=== PATIENT | female | born 2000 | race Two or more races ===

== ENCOUNTER 2025-05-19 11:26 | Emergency (ER) | payer MEDICAID, SELFPAY ==
[2025-05-19 11:36] VITALS: BP 119/66; PULSE 72; RESP 18; TEMP 36.8; O2SAT 100; BMI 15.6
--- NOTE | 2025-05-19 11:57 | XR_ITS ---
Examination: PA lateral chest 2 views TECHNIQUE: Upright PA lateral chest 2 views Date and time: 05/19/2025, 12:46 PM INDICATIONS: Chest pain numbness left arm beginning 3 weeks ago. FINDINGS: Normal heart size. Lungs are clear. The osseous structures are intact IMPRESSION: No active disease
--- NOTE | 2025-05-19 11:57 | EKG_ITS ---
[facility] Test Date: 2025-05-19 Pat Name: AFUA OZUNA Department: Room: - Gender: Female Seismic Interpreter: : 2000 Requested By: Malik Monteiro Order Number: [id number] Reading MD: Malik Monteiro Measurements Intervals [place] Rate: 74 P: 70 IA: 120 QRS: 65 QRSD: 70 T: 36 QT: 355 QTc: 396 Interpretive Statements SINUS RHYTHM WITH SINUS ARRHYTHMIA No previous ECG available for comparison /store/S0/[id number]/ecg/[id number].pdf
--- NOTE | 2025-05-19 11:58 | PD.EDSOB ---
ED SOB =RME/HPI General Chief Complaint: Shortness of Breath/Dyspnea Stated Complaint: SOB, chest pain radiating to left arm Time Seen by Provider: 05/19/25 11:42 Arrival date/time: 05/19/25 11:26 Limitations: no limitations RME / HPI RME / HPI Narrative: 24-year-old female presents for evaluation of chest pain x 3 weeks. She describes it as sharp, intermittent, substernal pain that radiates down her left arm. She endorses dyspnea and intermittent chills. Denies cough, hemoptysis, abdominal pain, nausea, vomiting, visual changes. Patient was sent to the ED from her primary care doctor for cardiac workup. Patient's family denies history of sudden cardiac . MD Complaint: shortness of breath and chest pain Consistency/Duration: intermittent Related Data Allergies Allergy/AdvReac Type Severity Reaction Status Date / Time No Known Drug Allergies Allergy Verified 05/19/25 11:32 Review of Systems Review of Systems Narrative Review of Systems: Per patient and patient's father. Constitutional Constitutional: Denies body ache(s), Denies chills, Reports fatigue, Denies fever(s), Denies headache(s) and Reports poor appetite Eyes Eyes: Denies blurry vision and Denies change in vision ENT Ears, Nose, Mouth, and Throat: Denies headache(s) and Denies neck pain Cardiovascular Cardiovascular: Reports chest pain, Denies diaphoresis, Reports dyspnea, Denies leg edema and Denies palpitations Respiratory Respiratory: Denies cough, Reports dyspnea, Denies hemoptysis and Denies wheezing Gastrointestinal Gastrointestinal: Denies abdominal pain, Denies diarrhea and Denies vomiting Genitourinary Genitourinary: Denies dysuria and Denies flank pain Musculoskeletal Musculoskeletal: Denies back pain, Denies neck pain, Denies stiffness and Denies tingling Integumentary/Breasts Skin/Breast: Denies new lesions and Denies rash Neurologic Neurologic: Denies headache(s) and Denies tingling Endocrine Endocrine: Reports fatigue and Denies palpitations Allergic/Immunologic Allergic/Immunologic: Denies wheezing Past Medical History Social History SMOKING STATUS: Never smoker ED Exam General Limitations: Present no limitations General appearance: Present alert and in no apparent distress Head Head exam: Present atraumatic and normocephalic Eye Eye exam: Present normal appearance, PERRL and EOMI; Absent scleral icterus ENT ENT exam: Present normal oropharynx and mucous membranes moist Neck Neck exam: Present normal inspection and full ROM; Absent meningismus Chest Chest inspection: Present normal inspection and symmetric chest wall rise Respiratory Respiratory exam: Present normal lung sounds bilaterally; Absent respiratory distress or wheezes Cardiovascular Cardiovascular exam: Present regular rate and +S1 Abdominal Exam Abdominal exam: Present soft; Absent distention Extremities Exam Extremities exam: Present normal inspection and full ROM Back Exam Back exam: Present normal inspection and full ROM; Absent CVA tenderness (R) or CVA tenderness (L) Neurological Exam Neurological exam: Present alert and normal gait Psychiatric Psychiatric exam: Present normal affect Skin Skin exam: Present warm, dry and intact Course Quality Measures none Orders Category Date Time Status EKG (ED ONLY) *Do not use* NOW Care 05/19/25 11:57 Completed EKG (ED Only) Stat Exams 05/19/25 11:57 Draft XR chest 2V Stat Exams 05/19/25 11:57 Completed B-Type Natriuretic Peptide Stat Lab 05/19/25 12:28 Completed CBC Stat Lab 05/19/25 12:28 Completed Comprehensive Metabolic Panel Stat Lab 05/19/25 12:28 Completed Drug Screen,Urine Stat Lab 05/19/25 13:06 Completed HCG Qualitative,Urine Stat Lab 05/19/25 13:06 Completed LDH (Lactate Dehydrogenase) Stat Lab 05/19/25 12:28 Completed Magnesium Stat Lab 05/19/25 12:28 Completed Partial Thromboplastin Time Stat Lab 05/19/25 12:28 Completed Prothrombin Time with INR Stat Lab 05/19/25 12:28 Completed Troponin I Stat Lab 05/19/25 12:28 Completed Urinalysis Stat Lab 05/19/25 13:06 Completed Vital Signs Vital signs: Vital Signs Temperature 98.3 F 05/19/25 11:36 Pulse Rate 72 05/19/25 11:36 Respiratory Rate 18 05/19/25 11:36 Blood Pressure 119/66 05/19/25 11:36 Pulse Oximetry (%) 100 05/19/25 11:36 Oxygen Delivery Method Room Air 05/19/25 11:36 Pulse ox 100% on room air, within normal limits. Shortness of Breath / Dyspnea MDM Narrative MDM Narrative:: 24-year-old female brought in by dad for evaluation of intermittent chest pain. Vital signs reassuring. Cardiac workup today was unremarkable with fortunately negative troponin pointing way from ACS. No evidence of pneumonia or acute cardiopulmonary process on chest x-ray. Viral swabs today were negative. Patient is anemic but not requiring emergent transfusion at this time. Nonspecific chest pain warrants further outpatient workup. Ultimately patient was discharged home with plan to follow-up with primary care within the week. I advised her to consider outpatient cardiology referral. Strict return precautions were provided. Patient stable at discharge. Patient data External records reviewed:: [facility] previous records Clinical information provided by:: patient Social determinants that could affect healthcare access:: none Patient has the following chronic illnesses:: None reported. How is presenting disease/condition affected by chronic disease/condition?: no chronic disease Evaluation data The following diagnostics were reviewed and interpreted by me:: lab results, radiology exam(s) and EKG tracing(s) Lab and/or radiology exams considered but not ordered:: Workup ordered. Interpretation Summary: EKG with rate 74, sinus rhythm, normal [place] interval, nonspecific ST changes. CBC showed anemia not requiring emergent transfusion at this time. No leukocytosis. No gross electrolyte abnormality or evidence of endorgan damage. UA with no sign of infection. hCG negative. Chest x-ray with no consolidation, no infiltrates, trachea midline. Medications / Prescriptions Medications or Prescriptions considered but not ordered:: Considered not ordered. Medication administrations:: Considered not ordered. Consultations Consultation(s) initiated? (list below): No Diagnosis Shortness of Breath Differential Diagnosis: congestive heart failure, community acquired pneumonia, asthma with exacerbation, pulmonary embolism and other (ACS, chest wall discomfort.) Most likely diagnosis given after review of the tests above:: Chest pain. Admission Indicated Admission indicated?: not indicated Admission Request Was there a request for admission?: No Disposition Plan Disposition Plan: Discharge Discharge Attestation Discharge Attestation: The patient and all family members were given an opportunity to ask questions and understood the discharge instructions. Discharge instructions specifically effects, indications for sooner follow up or return to the emergency department, and the expected course of current diagnosis. Patient condition: Stable Discharge Plan Plan Patient Disposition: HOME (Self Care) Discharge Disposition comment: stable Prescriptions/Referrals Referrals: No Primary/Family,Physician [Primary Care Provider] - In 1 week Problem List Clinical Impression: Anemia, Chest pain Impression comment: Follow-up with primary care within the next week for reevaluation. Consider outpatient cardiology referral. Consider outpatient nutrition consultation. Return to the ED if your symptoms worsen or change. Patient/Caregiver Discharge Instructions Education Materials: Anemia, ED Chest Pain, Uncertain Cause Print Language: Greenlandic Stand Alone Forms: Tahira Award Info., Patient Portal Info Letter PA/RESEARCH ENGINEER Supervising Physician PA/RESEARCH ENGINEER Supervising Physician: Dr. Gagnon
[2025-05-19 12:49] LABS: Basophils # (Auto) 0.1 Thou/mm3 (0.0-0.2); Basophils % (Auto) 1 % (0-2.5); Eosinophils # (Auto) 0.1 Thou/mm3 (0.0-0.5); Eosinophils % (Auto) 1 % (0-10); Hematocrit 34.1 % (36.0-46.0); Immature Granulocytes % (Auto) 0 % (0-0); Immature Granulocytes Auto 0.01 Thou/mm3 (0.00-0.00); Lymphocytes # (Auto) 1.7 Thou/mm3 (1.0-4.8); Lymphocytes % (Auto) 36 % (10-50); Mean Corpuscular HGB Conc 32.3 g/dl (31.0-37.0); Mean Corpuscular Hemoglobin 24.8 pg (25.0-35.0); Mean Corpuscular Volume 77 fL (80-100); Monocytes # (Auto) 0.4 Thou/mm3 (0.0-0.8); Monocytes % (Auto) 8 % (0-12); Neutrophils # (Auto) 2.7 Thou/mm3 (1.8-7.7); Neutrophils % (Auto) 55 % (37-80); Nucleated Red Blood Cell % 0 /100 WBC (0); Platelet Count 320 Thou/mm3 (140-440); RDW Standard Deviation 42.3 fL (36.4-46.3); Red Blood Count 4.44 Miln/mm3 (4.00-5.20); White Blood Count 4.9 Thou/mm3 (3.6-11.0)
[2025-05-19 13:05] LABS: INR 1.1 (0.9-1.3); Partial Thromboplastin Time 26.5 Seconds (22.0-36.0); Prothrombin Time 11.7 Seconds (9.0-12.2)
[2025-05-19 13:13] LABS: B-Type Natriuretic Peptide 30 pg/mL (0-100)
[2025-05-19 13:15] LABS: Collection Type, Urine Clean Catch
[2025-05-19 13:19] LABS: HCG Qualitative,Urine Negative
[2025-05-19 13:21] LABS: Bilirubin,Urine Negative (Negative); Blood,Urine Negative (Negative); Clarity,Urine Clear (Clear/Hazy); Color,Urine Lt-Yellow (Lt Yel-Yel); Glucose, Urine Negative (Negative); Ketones,Urine Negative (Negative); Leukocyte Esterase,Urine Negative (Negative); Nitrite,Urine Negative (Negative); Protein,Urine Negative (Neg - Trace); RBC,Urine 3 /hpf (0-3); Squamous Epithelial Cell,Urine 3 /hpf (0-5); Urobilinogen,Urine Negative mg/dL (0.0-1.0); WBC,Urine < 1 /hpf (0-5)
[2025-05-19 13:26] LABS: Alanine Aminotransferase 9 U/L (10-49); Albumin, Serum 4.7 gm/dL (3.5-5.0); Albumin/Globulin Ratio 2.1 (1.2-2.2); Alkaline Phosphatase 63 U/L (46-116); Anion Gap 8 (7-16); Aspartate Amino Transferase 19 U/L (0-34); BUN/Creatinine Ratio 17 Ratio (12-20); Bilirubin,Total 0.6 mg/dL (0.3-1.2); Blood Urea Nitrogen 10 mg/dL (9-23); Calcium 9.6 mg/dL (8.3-10.6); Calcium (Corrected) 9.6 mg/dL (8.5-10.1); Carbon Dioxide 26.2 mMol/L (20.0-31.0); Chloride 106 mMol/L (98-107); Creatinine (Component) 0.6 mg/dL (0.6-1.3); Estimated Creatinine Clearance 92.8 mL/min (>60); Globulin 2.2 gm/dL (2.3-3.5); Glucose 89 mg/dL (74-106); LDH (Lactate Dehydrogenase) 164 U/L (120-246); Osmolality,Calculated 277 (275-295); Potassium 4.1 mMol/L (3.4-5.1); Sodium 140 mMol/L (136-145); Total Protein 6.9 gm/dL (5.7-8.2); Troponin I < 0.002 ng/mL (0.0-0.045); eGFR > 60 See Note
[2025-05-19 13:36] LABS: Amphetamine/Methamp Scrn,U Negative (Negative); Barbiturate Screen,Urine Negative (Negative); Benzodiazepines Screen,Urine Negative (Negative); Benzoylecgonine Screen, Ur Negative (Negative); Fentanyl Screen,Urine Negative (Negative); Opiate Screen,Urine Negative (Negative); THC Screen,Urine Negative (Negative)
[2025-05-19 15:15] VITALS: BP 112/74; PULSE 60; RESP 18; TEMP 36.7; O2SAT 100
== END 2025-05-19 15:39 | disposition home or self-care (01) ==
PROVIDERS: Physician Assistant; Emergency Provider Emergency Medicine
DX: D64.9 Anemia, unspecified (principal); R07.2 Precordial pain
CPT/HCPCS: 36415; 71046; 80053; 80307; 81001; 81025; 83615; 83735; 83880; 84484; 85025; 85610; 85730; 93005; 99283

== ENCOUNTER 2025-09-19 23:41 | Emergency (ER) | payer SELFPAY ==
[2025-09-19 23:53] VITALS: BP 111/49; PULSE 70; RESP 20; TEMP 36.8; O2SAT 100
[2025-09-20 00:29] VITALS: BMI 17.5
[2025-09-20 00:43] LABS: HCG,Qualitative Serum Negative
[2025-09-20 00:44] LABS: Basophils # (Auto) 0.1 Thou/mm3 (0.0-0.2); Basophils % (Auto) 1 % (0-2.5); Eosinophils # (Auto) 0.2 Thou/mm3 (0.0-0.5); Eosinophils % (Auto) 2 % (0-10); Hematocrit 32.8 % (36.0-46.0); Hemoglobin 10.4 g/dL (12.0-16.0); Immature Granulocytes Auto 0.02 Thou/mm3 (0.00-0.00); Lymphocytes # (Auto) 3.0 Thou/mm3 (1.0-4.8); Lymphocytes % (Auto) 34 % (10-50); Mean Corpuscular HGB Conc 31.7 g/dl (31.0-37.0); Mean Corpuscular Hemoglobin 24.4 pg (25.0-35.0); Mean Corpuscular Volume 77 fL (80-100); Monocytes # (Auto) 0.7 Thou/mm3 (0.0-0.8); Monocytes % (Auto) 8 % (0-12); Neutrophils # (Auto) 4.9 Thou/mm3 (1.8-7.7); Neutrophils % (Auto) 56 % (37-80); Nucleated Red Blood Cell # 0.00 Thou/mm3 (0.00-0.00); Nucleated Red Blood Cell % 0 /100 WBC (0); Platelet Count 381 Thou/mm3 (140-440); RDW Standard Deviation 37.7 fL (36.4-46.3); Red Blood Count 4.26 Miln/mm3 (4.00-5.20); White Blood Count 8.8 Thou/mm3 (3.6-11.0)
[2025-09-20 00:50] LABS: Alanine Aminotransferase 9 U/L (10-49); Albumin, Serum 4.7 gm/dL (3.5-5.0); Albumin/Globulin Ratio 2.5 (1.2-2.2); Alkaline Phosphatase 65 U/L (46-116); Anion Gap 13 (7-16); Aspartate Amino Transferase 19 U/L (0-34); BUN/Creatinine Ratio 23 Ratio (12-20); Bilirubin,Total 0.4 mg/dL (0.3-1.2); Blood Urea Nitrogen 16 mg/dL (9-23); Calcium 9.4 mg/dL (8.3-10.6); Calcium (Corrected) 9.4 mg/dL (8.5-10.1); Carbon Dioxide 23.6 mMol/L (20.0-31.0); Chloride 107 mMol/L (98-107); Creatinine (Component) 0.7 mg/dL (0.6-1.3); Estimated Creatinine Clearance 86.5 mL/min (>60); Globulin 1.9 gm/dL (2.3-3.5); Glucose 97 mg/dL (74-106); Lipase 34 U/L (12-53); Osmolality,Calculated 288 (275-295); Potassium 3.3 mMol/L (3.4-5.1); Sodium 144 mMol/L (136-145); Total Protein 6.6 gm/dL (5.7-8.2); eGFR > 60 See Note
[2025-09-20 00:57] LABS: Collection Type, Urine Clean Catch
--- NOTE | 2025-09-20 01:02 | PD.EDABDPN ---
ED Abdominal Pain RME/HPI General Chief Complaint: Abdominal Pain Stated complaint: ABD PAIN Time seen by provider: 09/20/25 00:04 Arrival date/time: 09/19/25 23:41 RME / HPI RME / HPI narrative: DR. QUICK MAIN ED EVALUATION: Patient presenting with diffuse upper abdominal pain and reported syncopal episode in which family reportedly performed chest compression for an unreported amount of time. Upon arrival, paramedics noted pulses, reportedly taking Mefenamic for dysmenorrhea. Patient given 4 mg Zofran en uppa b pain associated vom no fever or chills diarrhea PMH: Hypotension, Anemia PSH: Unremarkable Allergies: None Social: Negative Related Data Previous Rx's ?Medication ?Instructions ?Recorded acetaminophen 300 mg-codeine 15 mg 1 tab PO Q8H PRN pain #10 tabs 09/20/25 tablet metoclopramide HCl 5 mg tablet 5 mg PO BID #20 tabs 09/20/25 (Reglan) pantoprazole 20 mg tablet,delayed 20 mg PO QDAY #30 tabs 09/20/25 release (Protonix) Allergies Allergy/AdvReac Type Severity Reaction Status Date / Time No Known Drug Allergies Allergy Verified 05/19/25 11:32 Review of Systems Review of Systems Systems Reviewed: All systems reviewed, normal except as documented Past Medical History Past Medical History CARDIAC: Positive Hypotension HEMATOLOGIC: Positive Anemia ED Exam Narrative Physical exam: GEN. APPEARANCE: The patient is alert awake oriented X-3 under mild/moderate distress c/o primarily of mid-epigastric pain, lying down comfortably, does not look ill/toxic. Patient has good eye contact. Patient is cooperative. VITALS: All vitals were reviewed and the pulse ox is 100%, which is normal according to my interpretation HEENT: Normocephalic, atraumatic and nontender. Pupils are equal and reactive. Oral mucosa is moist. NECK: Supple, nontender, no meningismus, no JVD. There is no thyromegaly and no lymphadenopathy. CHEST: Nontender on palpation no deformity and no crepitus. CARDIOVASCULAR: Heart regular rhythm, no murmur or gallop rub or extra beats. LUNGS: Clear to auscultation bilaterally with symmetrical chest rise. No laboring tachypnea or wheezing. No intercostal subcostal retraction. No rales and no rhonchi. ABDOMEN: Soft, flat, point tenderness to mid-epigastric region. There are no abnormal masses palpated. No pulsatile masses or bruits. Active and normal bowel sounds. EXTREMITIES: Normal inspection and palpation. No edema. No cyanosis. Patient is able to move all 4 extremities well SKIN: Warm and dry, no rashes noted. MUSCULOSKELETAL: No lumbar or midline bony tenderness. There is no CVA tenderness. No paraspinal muscle spasm or tenderness. NEURO: Cranial nerves II through XII grossly intact. There are no focal neurologic deficits noted. GCS is 15. PSYCHIATRIC: Patient is in normal mood and affect, cooperative. LYMPHATICS: No major lymphadenopathy noted. Course Quality Measures none Orders Category Date Time Status CBC Stat Lab 09/19/25 23:56 Completed CMP [Comprehensive Metabolic Panel] Stat Lab 09/19/25 23:56 Completed HCG,Qualitative Serum Stat Lab 09/20/25 00:04 Completed Lipase Stat Lab 09/19/25 23:56 Completed UA, C/S IF [Urinalysis, C/S if Indicated] Stat Lab 09/20/25 00:51 Completed Lidocaine 2% Viscous [Xylocaine 2% Viscous] Med 09/20/25 01:11 Discontinued 15 ml PO X1 ONE Metoclopramide Inj [Reglan Inj] Med 09/20/25 01:12 Discontinued 5 mg IVP X1 ONE Pantoprazole Inj [Protonix Inj] Med 09/20/25 01:11 Discontinued 40 mg IVP X1 ONE Sodium Chloride 0.9% 1000 ml [Ns] 1,000 ml Med 09/20/25 01:11 Discontinued IV 999 mls/hr mg Hyd/Al Hyd/Elliot Susp [Maalox Susp] Med 09/20/25 01:11 Discontinued 30 ml PO X1 ONE Vital Signs Vital signs: Vital Signs Temperature 98.2 F 09/19/25 23:53 Pulse Rate 70 09/19/25 23:53 Respiratory Rate 20 09/19/25 23:53 Blood Pressure 111/49 L 09/19/25 23:53 Pulse Oximetry (%) 100 09/19/25 23:53 Oxygen Delivery Method Room Air 09/19/25 23:53 Abdominal Pain MDM MDM Narrative MDM Narrative:: Scribe Attestation: I, Yasmine Laurent, am scribing for and in the presence of Dr. Quick. Provider Notation: Although this document has been carefully reviewed, there may still be some phonetic and other typographical errors. These errors are purely grammatical due to imperfections in the software program and should not be construed in any way to compromise the substance of the patient's medical care during this visit. Patient presenting with diffuse upper abdominal pain and reported syncopal episode in which family reportedly performed chest compression for an unreported amount of time. Upon arrival, paramedics noted pulses, reportedly taking Mefenamic for dysmenorrhea. Please see PE findings. Laboratory markers, including CBC demonstrates stable anemia with hemoglobin of 10.4, no left shift or associated bandemia. Serum chemistries demonstrate low Potassium of 3.3, Lipase and LFT's were essentially normal. UA without evidence of infection, and toxicology screen negative. Patient placed on cardiac/vascular sonographer, IV established and received IV fluids, GI cocktail, PPI, and on serial evaluation, reports subjective significant improvement. Abdominal exam is benign. Patient is most likely experiencing gastritis secondary to NSAID that she is currently taking for dysmenorrhea. Will discontinue at this time and prescribe PPI, short course of Reglan, with PMD F/U for consideration of GI referral should symptoms persist. Patient data External records reviewed:: [facility] previous records (Reviewed prior ED records from 05/19/25. Patient was seen for Anemia.) Clinical information provided by:: patient and family Social determinants that could affect healthcare access:: none Patient has the following chronic illnesses:: Anemia, Hypotension How is presenting disease/condition affected by chronic disease/condition?: exacerbated by Evaluation data The following diagnostics were reviewed and interpreted by me:: lab results Lab and/or radiology exams considered but not ordered:: None Interpretation Summary: See MDM above Medications / Prescriptions Medications or Prescriptions considered but not ordered:: None Medication administrations:: Medication Administration History Discontinued Medications Al Hydrox/Mg Hydrox/Simethicone (Mg Hyd/Al Hyd/Elliot (Maalox Reg) Susp 30 Ml Udc) 30 ml PO X1 ONE Stop: 09/20/25 01:12 Last Admin: 09/20/25 01:36 Dose: 30 ml Documented By: SEDA Sodium Chloride (Ns) 1,000 mls @ 999 mls/hr IV .Q1H1M ONE Stop: 09/20/25 02:11 Last Infusion: 09/20/25 02:43 Dose: Infused Documented By: Admin: 09/20/25 01:42 Dose: 999 mls/hr Documented By: SEDA Lidocaine HCl (Lidocaine Viscous 2% 15 Ml Udc) 15 ml PO X1 ONE Stop: 09/20/25 01:12 Last Admin: 09/20/25 01:36 Dose: 15 ml Documented By: SEDA Metoclopramide HCl (Metoclopramide Inj 5 Mg/Ml Vial 2 Ml) 5 mg IVP X1 ONE; Protocol Stop: 09/20/25 01:13 Last Admin: 09/20/25 01:36 Dose: 5 mg Documented By: SEDA Pantoprazole Sodium (Pantoprazole Inj 40 Mg Vial) 40 mg IVP X1 ONE Stop: 09/20/25 01:12 Last Admin: 09/20/25 01:36 Dose: 40 mg Documented By: SEDA See above if any Consultations Consultation(s) initiated? (list below): No Diagnosis Differential diagnosis abdominal pain: abdominal pain, gastroenteritis, pancreatitis and other (Gastritis, GERD) Most likely diagnosis given after review of the tests above:: Gastritis Admission Indicated Admission indicated?: not indicated Explain why admission is indicated or not indicated:: Patient does not meet admission criteria Admission Request Was there a request for admission?: No Disposition Plan Disposition Plan: Discharge Discharge Attestation Discharge Attestation: The patient and all family members were given an opportunity to ask questions and understood the discharge instructions. Discharge instructions specifically effects, indications for sooner follow up or return to the emergency department, and the expected course of current diagnosis. Patient condition: Stable Discharge Plan Plan Patient Disposition: HOME (Self Care) Prescriptions/Referrals Prescriptions/Med Rec: New pantoprazole [Protonix] 20 mg tablet,delayed release (DR/EC) 20 mg PO QDAY Qty: 30 1RF metoclopramide HCl [Reglan] 5 mg tablet 5 mg PO BID Qty: 20 0RF Rx Instructions: Take 1 tablet 30 minutes before breakfast and 30 minutes before bedtime. acetaminophen-codeine 300-15 mg tablet 1 tab PO Q8H MDD 3 tab PRN (Reason: pain) Qty: 10 0RF Referrals: Indiana Gongora MD [Physician, Gastroenterology] - In 1 week Referral Note: Patient with suspected gastritis versus peptic ulcer. Likely secondary to recent NSAIDs. Please evaluate Problem List Clinical Impression: Gastritis Impression comment: Gastritis Patient/Caregiver Discharge Instructions Education Materials: ED PEPTIC ULCER vs GASTRITIS Additional Instructions: Avoid spicy foods. Head of bed elevation. Medication as directed. Follow-up with PMD for consideration of referral to GI specialist for possible upper GI evaluation. Return for fever escalating abdominal pain black tarry stools vomiting blood Print Language: Barbadian Stand Alone Forms: Tahira Award Info., Patient Portal Info Letter
[2025-09-20 01:14] LABS: Bilirubin,Urine Negative (Negative); Blood,Urine Negative (Negative); Clarity,Urine Clear (Clear/Hazy); Color,Urine Colorless (Lt Yel-Yel); Culture Indicated,Urine Not Indicated; Glucose, Urine Negative (Negative); Ketones,Urine Trace (Negative); Leukocyte Esterase,Urine Positive (Negative); Nitrite,Urine Negative (Negative); PH,Urine 7.5 (5.0-7.0); Protein,Urine Negative (Neg - Trace); RBC,Urine 1 /hpf (0-3); Specific Gravity,Urine 1.005 (1.001-1.035); Squamous Epithelial Cell,Urine 1 /hpf (0-5); Urobilinogen,Urine Negative mg/dL (0.0-1.0); WBC,Urine 2 /hpf (0-5)
[2025-09-20] MEDS: LIDOCAINE VISCOUS 2% 15 ML UDC PO (01:36)
[2025-09-20] MEDS: METOCLOPRAMIDE INJ 5 MG/ML VIAL 2 ML IVP (01:36)
[2025-09-20] MEDS: MG HYD/AL HYD/SIME (Maalox Reg) SUSP 30 ML UDC PO (01:36)
[2025-09-20] MEDS: SODIUM CHLORIDE 0.9% 1000 ML 1,000 ML 999 ML IV (01:42)
[2025-09-20 03:12] VITALS: BP 110/71; PULSE 67; RESP 19; TEMP 36.7; O2SAT 100
[2025-09-20 03:47] VITALS: BP 110/71; PULSE 75; RESP 21; TEMP 36.7; O2SAT 100
== END 2025-09-20 03:57 | disposition home or self-care (01) ==
LOC: SERX 09-20 04:14
PROVIDERS: Emergency Provider Emergency Medicine
DX: K29.70 Gastritis, unspecified, without bleeding (principal)
CPT/HCPCS: 36415; 80053; 81001; 81025; 83690; 84703; 85025; 96361; 96374; 96375; 99283; J2470; J2765; J3490; J7030; A9270